=== PATIENT | female | born 1955 | race Caucasian/White ===

== ENCOUNTER 2022-07-02 11:52 | Emergency (ER) | payer OTHER, BC ==
[2022-07-02 12:27] VITALS: BMI 26.2
[2022-07-02 14:40] LABS: BASO % 0.8 % (0-2.0); EOS % 0.2 % (0-4.5); HEMATOCRIT 38.5 % (32.4-45.2); HEMOGLOBIN 12.5 GM/dL (10.7-15.3); LYMPH % 19.4 % (8-40); MCH 31.1 pg (25.7-33.7); MCHC 32.5 g/dl (32.0-36.0); MEAN CELL VOLUME 95.5 fl (80-96); MEAN PLT VOLUME 7.3 fl (7.5-11.1); MONO % 4.7 % (3.8-10.2); NEUT % 74.9 % (42.8-82.8); PLATELET COUNT 225 10^3/uL (134-434); RBC 4.04 M/mm3 (3.60-5.2); RDW 12.8 % (11.6-15.6); WHITE BLOOD COUNT 8.5 K/mm3 (4.0-10.0)
[2022-07-02 15:12] LABS: ALBUMIN 3.8 g/dl (3.4-5.0); BLOOD UREA NITROGEN 15.9 mg/dL (7-18); CALCIUM 9.6 mg/dL (8.5-10.1)
[2022-07-02 15:15] LABS: CREATININE 1.2 mg/dL (0.55-1.3)
[2022-07-02 15:17] LABS: BILIRUBIN,TOTAL 0.3 mg/dL (0.2-1); TOT PROT 7.1 g/dl (6.4-8.2)
[2022-07-02 17:37] VITALS: BP 110/78; PULSE 78; RESP 19; TEMP 98.6
== END 2022-07-02 17:37 | disposition home or self-care (01) ==
LOC: JER 11:52
DX: R55 Syncope and collapse (principal)
CPT/HCPCS: 0241U-QW; 36415; 70450-TC; 72125-TC; 80053; 84484; 85025; 93005; 93010; 99285-25